=== PATIENT | female | born 1950 ===

== ENCOUNTER 2019-02-08 17:18 | Emergency (ER) | payer OTHER ==
[2019-02-08 17:31] VITALS: BP 155/97
--- NOTE | 2019-02-08 18:24 | UC ---
Skin Complaint HPI - HPI Summary HPI Summary: needle stick to right thumb while changing an insulin pump needle for a client-- --patient reports there is no concern about client being hiv/hep positive---as a precaution patient did have blood drawn and this patient will also have baseline lab studies completed---patient reports one drop of blood from injury at 9 am this morning and she did wash her hands---- - History of Current Complaint Chief Complaint: UCBodyFluidExposure Time Seen by Provider: 02/08/19 18:12 Stated Complaint: WC FINGER COMPLAINT Hx Obtained From: Patient ?: No Onset/Duration: Sudden Onset Skin Exposure Onset/Duration: Hours Ago Current Severity: None Pain Intensity: 0 Pain Scale Used: 0-10 Numeric Location: Discrete - right thumb Aggravating Factor(s): Nothing Alleviating Factor(s): Nothing Associated Signs & Symptoms: Positive: Negative - Allergy/Home Medications Allergies/Adverse Reactions: Allergies Allergy/AdvReac Type Severity Reaction Status Date / Time alendronate sodium Allergy GI Upset Verified 02/08/19 17:33 [From Fosamax] codeine Allergy GI Upset Verified 02/08/19 17:33 PMH/Surg Hx/FS Hx/Imm Hx Previously Healthy: No Endocrine History: Dyslipidemia Cardiovascular History: Hypertension Neurological History: Other Other Neurological History: Insommnia - Surgical History Surgical History: Yes Surgery Procedure, Year, and Place: tubal ligation - Family History Known Family History: Positive: None - Social History Occupation: Employed Full-time Lives: With Family Alcohol Use: Occasionally Substance Use Type: None Smoking Status (MU): Former Smoker Review of Systems All Other Systems Reviewed And Are Negative: Yes Constitutional: Positive: Negative Skin: Positive: Other - needle stick to right thumb Eyes: Positive: Negative ENT: Positive: Negative Respiratory: Positive: Negative Cardiovascular: Positive: Negative Gastrointestinal: Positive: Negative Genitourinary: Positive: Negative Motor: Positive: Negative Neurovascular: Positive: Negative Musculoskeletal: Positive: Negative Neurological: Positive: Negative Psychological: Positive: Negative Is Patient Immunocompromised?: No Physical Exam Triage Information Reviewed: Yes Appearance: Well-Appearing, No Pain Distress, Well-Nourished Vital Signs: Initial Vital Signs Temp 97.3 F 02/08/19 17:29 Pulse 86 02/08/19 17:29 Resp 18 02/08/19 17:29 BP 155/97 02/08/19 17:29 Pulse Ox 100 02/08/19 17:29 Vital Signs Reviewed: Yes Eye Exam: Normal Eyes: Positive: Conjunctiva Clear ENT Exam: Normal ENT: Positive: Normal ENT inspection, Hearing grossly normal. Negative: Trismus , Muffled voice, Hoarse voice Dental Exam: Normal Neck exam: Normal Neck: Positive: Supple, Nontender Respiratory Exam: Normal Respiratory: Positive: Chest non-tender, No respiratory distress, No accessory muscle use Cardiovascular Exam: Normal Cardiovascular: Positive: RRR, Pulses Normal, Brisk Capillary Refill Musculoskeletal Exam: Normal Musculoskeletal: Positive: Strength Intact, ROM Intact, No Edema Neurological Exam: Normal Neurological: Positive: Alert, Muscle Tone Normal Psychological Exam: Normal Skin Exam: Normal Course/Dx - Course Course Of Treatment: wash hand with soap and water, follow with pcp / employee health for follow testing and review test results---patient reports tetanus is up to date - Diagnoses Provider Diagnosis: Needlestick injury accident with exposure to body fluid, Hypertension Discharge - Sign-Out/Discharge Documenting (check all that apply): Patient Departure All imaging exams completed and their final reports reviewed: No Studies - Discharge Plan Condition: Stable Disposition: HOME Patient Education Materials: Needle Stick Injuries (ED), Hypertension (ED) Referrals: Ulices Lowery MD [Primary Care Provider] - 2 Weeks - Billing Disposition and Condition Condition: STABLE Disposition: Home
[2019-02-09 11:07] LABS: Hepatitis B Surface Antigen Nonreactive (Nonreactive)
[2019-02-09 11:21] LABS: Hepatitis B Surface AB Immune (Immune)
[2019-02-09 12:13] LABS: Hepatitis C Antibody Nonreactive (Nonreactive)
--- NOTE | 2019-02-09 15:39 | UC ---
- Progress Note Progress Note: 02/09/2019 Hep B: immune Hep C: non reactive HIV 1&2: negative. No change Mary Fox PA-C Course/Dx - Diagnoses Provider Diagnoses: Needlestick injury accident with exposure to body fluid, Hypertension Discharge - Sign-Out/Discharge Documenting (check all that apply): Post-Discharge Follow Up All imaging exams completed and their final reports reviewed: No Studies - Discharge Plan Condition: Stable Disposition: HOME Patient Education Materials: Needle Stick Injuries (ED), Hypertension (ED) Referrals: Ulices Lowery MD [Primary Care Provider] - 2 Weeks - Billing Disposition and Condition Condition: STABLE Disposition: Home
== END 2019-02-08 18:40 | disposition home or self-care (01) ==
LOC: UCEAST 17:18
DX: Z77.21 Contact with and (suspected) exposure to potentially hazardous body fluids (principal); I10 Essential (primary) hypertension; Z87.891 Personal history of nicotine dependence; Z88.5 Allergy status to narcotic agent; Z91.09 Other allergy status, other than to drugs and biological substances; W46.1XXA Contact with contaminated hypodermic needle, initial encounter
CPT/HCPCS: 36415; 86703; 86706; 86803; 87340; 99201; G0463